=== PATIENT | male | born 1960 | race Caucasian/White ===

== ENCOUNTER 2017-03-26 10:43 | Day surgery (SDC) | payer MEDICARE, OTHER ==
[~2017-03-26] VITALS: Ht 167.6 cm; Wt 95.4 kg
[2017-03-26] VITALS (8 sets, daily range): BP systolic 180–215; BP diastolic 77–95; PULSE 76–88
[~2017-03-26 10:43] MED LIST: ALLOPURINOL300 MG PO; AMLODIPINE5 MG PO; ASPIRIN E.C. 8181 MG PO; BYSTOLIC10 MG PO; BYSTOLIC5 MG PO; CALCIUM ANTACI750 M1 PO; COLACE 100100 MG/CAP PO; CRANBERRY500 M3 PO; FLUOXETINE; FORTAMET1000 MG PO; GLIPIZIDE5 MG PO; GLUCOPHAGE PO; GLUCOTROL 5M5 MG/TAB PO; HYTRIN 5MG C5 MG/CAP PO; LEVEMIR100 U/ML SC; LISINOPRIL20 MG PO; LOPID 600M600 MG/TAB PO; MEVACOR 20M20 MG/TAB PO; NEPHROCAP PO; NORVASC 10MG10 MG PO; ONGLYZA2.5 MG PO; SIMVASTATIN20 MG PO; SODIUM BICARBO650 MG PO; ULTRAM 50MG TAB50 MG PO; ULTRAM50 MG PO; ZESTRIL 20MG TA20 MG PO; ZESTRIL40 MG PO; ZYLOPRIM 300MG300 MG PO
[2017-03-26 11:34] LABS: MEAN CELL VOLUME 99 fl (80.0-100.0); MEAN CORPUSCULAR HGB CONC 34 g/dl (33.0-37.0); MEAN PLATELET VOLUME 12.3 fl (7.4-10.4); PLATELET COUNT 95 K/mm3 (130-400); RED BLOOD COUNT 2.88 M/mm3 (4.20-5.60); REDCELL DISTRIBUTION WIDTH-CV 11.9 % (11.5-14.5)
[2017-03-26 11:35] LABS: HEMATOCRIT 28.6 % (42.0-52.0); HEMOGLOBIN 9.8 g/dl (13.5-18.0); MEAN CORPUSCULAR HEMOGLOBIN 34 pg (27.0-31.0)
[2017-03-26] MEDS ORDERED: PLAVIX 75MG TAB75 MG PO (11:37)
[2017-03-26] MEDS ORDERED: APRESOLINE 25MG25 MG PO (11:39)
[2017-03-26] MEDS ORDERED: COREG 25MG25 MG/TAB PO (11:40)
[2017-03-26 11:41] LABS: INR 1.1 (0.8-3.0); PROTHROMBIN TIME 12.2 SECONDS (9.7-12.8)
[2017-03-26 11:42] LABS: CALCIUM 8.7 mg/dL (8.4-10.2); POTASSIUM 4.5 mmol/L (3.4-5.0)
[2017-03-26] MEDS ORDERED: B-121000 MCG PO (11:42)
[2017-03-26 11:50] LABS: CREATININE, serum 9.16 mg/dL (0.66-1.25)
[2017-03-26 13:21] LABS: CHOLESTEROL RISK RATIO 3.8
[2017-03-27] MEDS ORDERED: RENVELA800 MG PO (00:20)
== END 2017-03-26 17:24 | disposition home or self-care (01) ==
LOC: COL.CAR 10:43
PROVIDERS: Internal Medicine Interventional Cardiology
DX: I25.10 Atherosclerotic heart disease of native coronary artery without angina pectoris (principal); R94.39 Abnormal result of other cardiovascular function study; I48.0 Paroxysmal atrial fibrillation; I12.0 Hypertensive chronic kidney disease with stage 5 chronic kidney disease or end stage renal disease; N18.6 End stage renal disease; Z99.2 Dependence on renal dialysis; Z79.82 Long term (current) use of aspirin; Z79.84 Long term (current) use of oral hypoglycemic drugs; Z87.891 Personal history of nicotine dependence; Z83.3 Family history of diabetes mellitus
CPT/HCPCS: J0360; J2250; J3010; Q9967

== ENCOUNTER 2017-03-26 21:45 | Inpatient (IN) | payer MEDICARE, OTHER ==
[~2017-03-26] VITALS: Ht 167.6 cm; Wt 97.4 kg
[~2017-03-26 21:45] MED LIST changes: +APRESOLINE 25MG25 MG PO; +B-121000 MCG PO; +COREG 25MG25 MG/TAB PO; +PLAVIX 75MG TAB75 MG PO
[2017-03-26 22:37] LABS: BASO # 0.1 (0.0-0.2); BASO % 1.1 % (0.0-2.0); EOS # 0.2 (0.0-0.7); EOS % 3.8 % (0-4.0); GRAN # 3.8 (1.4-6.5); GRAN % 61.1 % (42.2-75.2); LYMPH # 1.5 (1.2-3.4); LYMPH % 24.6 % (20.0-51.0); MEAN CELL VOLUME 99 fl (80.0-100.0); MEAN CORPUSCULAR HGB CONC 34 g/dl (33.0-37.0); MEAN PLATELET VOLUME 11.7 fl (7.4-10.4); MONO # 0.6 (0.1-0.6); MONO % 8.8 % (1.7-9.3); PLATELET COUNT 118 K/mm3 (130-400); RED BLOOD COUNT 2.66 M/mm3 (4.20-5.60); REDCELL DISTRIBUTION WIDTH-CV 12.1 % (11.5-14.5)
[2017-03-26 22:42] LABS: HEMATOCRIT 26.3 % (42.0-52.0); HEMOGLOBIN 8.9 g/dl (13.5-18.0); MEAN CORPUSCULAR HEMOGLOBIN 33 pg (27.0-31.0)
[2017-03-26 22:45] LABS: INR 1.1 (0.8-3.0); PROTHROMBIN TIME 12.4 SECONDS (9.7-12.8)
[2017-03-26 22:47] LABS: PARTIAL THROMBOPLASTIN TIME 20.2 SECONDS (26.0-37.0)
[2017-03-26 22:48] LABS: ALBUMIN 3.5 gm/dL (3.5-5.0); BILIRUBIN,TOTAL 0.2 mg/dL (0.0-1.0); CALCIUM 8.6 mg/dL (8.4-10.2); POTASSIUM 4.3 mmol/L (3.4-5.0); TOTAL PROTEIN 6.3 gm/dL (6.4-8.2)
[2017-03-26 22:55] LABS: CREATININE, serum 10.16 mg/dL (0.66-1.25)
[2017-03-27] VITALS (13 sets, daily range): BP systolic 125–165; BP diastolic 63–77; PULSE 76–82; TEMP 98–98.7
[2017-03-27] MEDS ORDERED: RENVELA800 MG PO (00:20)
[2017-03-27 07:00] LABS: BASO # 0.1 (0.0-0.2); BASO % 0.6 % (0.0-2.0); EOS # 0.1 (0.0-0.7); EOS % 1.3 % (0-4.0); GRAN # 5.9 (1.4-6.5); GRAN % 72.2 % (42.2-75.2); LYMPH # 1.5 (1.2-3.4); LYMPH % 18.2 % (20.0-51.0); MEAN CELL VOLUME 99 fl (80.0-100.0); MEAN CORPUSCULAR HGB CONC 34 g/dl (33.0-37.0); MEAN PLATELET VOLUME 12.5 fl (7.4-10.4); MONO # 0.6 (0.1-0.6); MONO % 7.5 % (1.7-9.3); PLATELET COUNT 98 K/mm3 (130-400); RED BLOOD COUNT 2.34 M/mm3 (4.20-5.60)
[2017-03-27 07:01] LABS: HEMATOCRIT 23.2 % (42.0-52.0); HEMOGLOBIN 7.8 g/dl (13.5-18.0); MEAN CORPUSCULAR HEMOGLOBIN 33 pg (27.0-31.0)
[2017-03-27 07:17] LABS: CALCIUM 8.6 mg/dL (8.4-10.2); PHOSPHOROUS 5.7 mg/dL (2.5-4.5); POTASSIUM 4.5 mmol/L (3.4-5.0)
[2017-03-27 07:24] LABS: CREATININE, serum 10.79 mg/dL (0.66-1.25)
[2017-03-28 00:33] VITALS: BP 167/68; PULSE 86; TEMP 97.8
[2017-03-28 04:26] VITALS: BP 154/67; PULSE 82; TEMP 97.6
[2017-03-28 07:59] VITALS: BP 154/65; PULSE 83; TEMP 98.7
[2017-03-28] MEDS ORDERED: APRESOLINE50 MG PO (13:36)
== END 2017-03-28 14:35 | disposition home or self-care (01) | DRG 919 ==
LOC: COL.ER 21:45 → MEDICAL 23:07 → EDBEDREQ 23:43 → MEDICAL 03-27 01:00
PROVIDERS: Emergency Medicine; Internal Medicine Nephrology
PROC: 5A1D70Z Performance of Urinary Filtration, Intermittent, Less than 6 Hours Per Day (ICD-10-PCS; principal; 2017-03-27)
DX: I97.630 Postprocedural hematoma of a circulatory system organ or structure following a cardiac catheterization (principal); N18.6 End stage renal disease; D62 Acute posthemorrhagic anemia; I12.0 Hypertensive chronic kidney disease with stage 5 chronic kidney disease or end stage renal disease; Z99.2 Dependence on renal dialysis; E11.21 Type 2 diabetes mellitus with diabetic nephropathy; E11.42 Type 2 diabetes mellitus with diabetic polyneuropathy; I25.10 Atherosclerotic heart disease of native coronary artery without angina pectoris; Z87.891 Personal history of nicotine dependence; D63.1 Anemia in chronic kidney disease
CPT/HCPCS: J0360; J2250; J2916; J3010; P9016; Q9967

== ENCOUNTER 2017-04-01 04:40 | Inpatient (IN) | payer MEDICARE, OTHER ==
[2017-04-01] VITALS (11 sets, daily range): BP systolic 148–180; BP diastolic 61–82; PULSE 72–93; TEMP 97.4–98.4
[~2017-04-01] VITALS: Ht 167.6 cm; Wt 97.1 kg
[~2017-04-01 04:40] MED LIST changes: +APRESOLINE50 MG PO; +RENVELA800 MG PO
[2017-04-01 05:46] LABS: BASO % 0.5 % (0.0-2.0); EOS # 0.2 (0.0-0.7); EOS % 3.5 % (0-4.0); GRAN # 4.1 (1.4-6.5); GRAN % 63.9 % (42.2-75.2); LYMPH # 1.3 (1.2-3.4); LYMPH % 19.7 % (20.0-51.0); MEAN CELL VOLUME 99 fl (80.0-100.0); MEAN CORPUSCULAR HGB CONC 34 g/dl (33.0-37.0); MEAN PLATELET VOLUME 11.8 fl (7.4-10.4); MONO # 0.8 (0.1-0.6); MONO % 12.1 % (1.7-9.3); PLATELET COUNT 93 K/mm3 (130-400); RED BLOOD COUNT 2.57 M/mm3 (4.20-5.60)
[2017-04-01 05:50] LABS: HEMATOCRIT 25.5 % (42.0-52.0); HEMOGLOBIN 8.6 g/dl (13.5-18.0); MEAN CORPUSCULAR HEMOGLOBIN 33 pg (27.0-31.0)
[2017-04-01 05:55] LABS: INR 1.1 (0.8-3.0); PROTHROMBIN TIME 12.3 SECONDS (9.7-12.8)
[2017-04-01 05:56] LABS: ALBUMIN 4.1 gm/dL (3.5-5.0); BILIRUBIN,TOTAL 0.7 mg/dL (0.0-1.0); CALCIUM 8.9 mg/dL (8.4-10.2)
[2017-04-01 05:58] LABS: PARTIAL THROMBOPLASTIN TIME 28.1 SECONDS (26.0-37.0)
[2017-04-01 05:59] LABS: CREATININE, serum 5.87 mg/dL (0.66-1.25)
[2017-04-01 17:25] LABS: HEMOGLOBIN 10.1 g/dl (13.5-18.0)
[2017-04-02] VITALS (7 sets, daily range): BP systolic 139–169; BP diastolic 66–76; PULSE 77–92; TEMP 97.8–98.2
[2017-04-02 07:19] LABS: BASO % 0.7 % (0.0-2.0); EOS # 0.2 (0.0-0.7); EOS % 2.8 % (0-4.0); GRAN % 66.6 % (42.2-75.2); LYMPH % 16.7 % (20.0-51.0); MEAN CELL VOLUME 98 fl (80.0-100.0); MEAN CORPUSCULAR HGB CONC 33 g/dl (33.0-37.0); MEAN PLATELET VOLUME 12.1 fl (7.4-10.4); MONO # 0.8 (0.1-0.6); MONO % 12.7 % (1.7-9.3); PLATELET COUNT 87 K/mm3 (130-400); RED BLOOD COUNT 3.09 M/mm3 (4.20-5.60); REDCELL DISTRIBUTION WIDTH-CV 14.7 % (11.5-14.5)
[2017-04-02 07:22] LABS: HEMATOCRIT 30.4 % (42.0-52.0); HEMOGLOBIN 10.1 g/dl (13.5-18.0); MEAN CORPUSCULAR HEMOGLOBIN 33 pg (27.0-31.0)
[2017-04-02 07:41] LABS: ALBUMIN 3.6 gm/dL (3.5-5.0); CALCIUM 8.7 mg/dL (8.4-10.2); PHOSPHOROUS 4.8 mg/dL (2.5-4.5); POTASSIUM 4.9 mmol/L (3.4-5.0)
[2017-04-02 08:02] LABS: CREATININE, serum 6.51 mg/dL (0.66-1.25)
[2017-04-03 03:19] VITALS: BP 152/74; PULSE 85
[2017-04-03 06:39] LABS: BASO % 0.4 % (0.0-2.0); EOS # 0.2 (0.0-0.7); EOS % 2.4 % (0-4.0); GRAN # 4.8 (1.4-6.5); GRAN % 68.1 % (42.2-75.2); LYMPH # 1.3 (1.2-3.4); MEAN CELL VOLUME 98 fl (80.0-100.0); MEAN CORPUSCULAR HGB CONC 34 g/dl (33.0-37.0); MONO # 0.8 (0.1-0.6); MONO % 10.8 % (1.7-9.3); PLATELET COUNT 85 K/mm3 (130-400); RED BLOOD COUNT 2.79 M/mm3 (4.20-5.60); REDCELL DISTRIBUTION WIDTH-CV 13.8 % (11.5-14.5)
[2017-04-03 06:43] LABS: HEMATOCRIT 27.4 % (42.0-52.0); HEMOGLOBIN 9.2 g/dl (13.5-18.0); MEAN CORPUSCULAR HEMOGLOBIN 33 pg (27.0-31.0)
[2017-04-03 06:52] LABS: ALBUMIN 3.5 gm/dL (3.5-5.0); CALCIUM 8.7 mg/dL (8.4-10.2); PHOSPHOROUS 5.7 mg/dL (2.5-4.5); POTASSIUM 4.8 mmol/L (3.4-5.0)
[2017-04-03 06:58] LABS: CREATININE, serum 8.81 mg/dL (0.66-1.25)
[2017-04-03 10:44] VITALS: BP 162/87; PULSE 84; TEMP 98.2
[2017-04-03 17:06] VITALS: BP 163/72; PULSE 82; TEMP 98.1
[2017-04-03 21:31] VITALS: BP 159/73; PULSE 85; TEMP 98.4
[2017-04-04 02:17] VITALS: BP 151/68; PULSE 74; TEMP 98.8
[2017-04-04 06:44] LABS: BASO % 0.5 % (0.0-2.0); EOS # 0.2 (0.0-0.7); EOS % 2.3 % (0-4.0); GRAN # 4.7 (1.4-6.5); GRAN % 63.8 % (42.2-75.2); LYMPH # 1.7 (1.2-3.4); MEAN CELL VOLUME 97 fl (80.0-100.0); MEAN CORPUSCULAR HGB CONC 34 g/dl (33.0-37.0); MEAN PLATELET VOLUME 11.9 fl (7.4-10.4); MONO # 0.7 (0.1-0.6); MONO % 10.1 % (1.7-9.3); PLATELET COUNT 91 K/mm3 (130-400); RED BLOOD COUNT 2.86 M/mm3 (4.20-5.60); REDCELL DISTRIBUTION WIDTH-CV 13.4 % (11.5-14.5)
[2017-04-04 06:50] LABS: ALBUMIN 3.4 gm/dL (3.5-5.0); CALCIUM 8.7 mg/dL (8.4-10.2); PHOSPHOROUS 5.7 mg/dL (2.5-4.5); POTASSIUM 5.1 mmol/L (3.4-5.0)
[2017-04-04 06:54] LABS: CREATININE, serum 7.67 mg/dL (0.66-1.25)
[2017-04-04 06:55] LABS: HEMATOCRIT 27.8 % (42.0-52.0); HEMOGLOBIN 9.4 g/dl (13.5-18.0); MEAN CORPUSCULAR HEMOGLOBIN 33 pg (27.0-31.0)
[2017-04-04 07:57] VITALS: BP 152/66; PULSE 79; TEMP 98.2
[2017-04-04] MEDS ORDERED: MIRALAX PA17 GM/Dose PO (10:44)
[2017-04-04] MEDS ORDERED: OXY IR5 MG PO (10:44)
[2017-04-04] MEDS ORDERED: APRESOLINE50 MG PO (10:46)
== END 2017-04-04 13:13 | disposition home or self-care (01) | DRG 919 ==
LOC: COL.ER 04:40 → MEDICAL 08:27
PROVIDERS: Emergency Medicine; Internal Medicine Nephrology
PROC: B41D1ZZ Fluoroscopy of Aorta and Bilateral Lower Extremity Arteries using Low Osmolar Contrast (ICD-10-PCS; principal; 2017-04-01)
PROC: 5A1D70Z Performance of Urinary Filtration, Intermittent, Less than 6 Hours Per Day (ICD-10-PCS; 2017-04-01)
PROC: 5A1D70Z Performance of Urinary Filtration, Intermittent, Less than 6 Hours Per Day (ICD-10-PCS; 2017-04-03)
DX: I97.638 Postprocedural hematoma of a circulatory system organ or structure following other circulatory system procedure (principal); N18.6 End stage renal disease; I12.0 Hypertensive chronic kidney disease with stage 5 chronic kidney disease or end stage renal disease; D62 Acute posthemorrhagic anemia; I25.10 Atherosclerotic heart disease of native coronary artery without angina pectoris; E11.22 Type 2 diabetes mellitus with diabetic chronic kidney disease; Z99.2 Dependence on renal dialysis; E11.42 Type 2 diabetes mellitus with diabetic polyneuropathy; E83.39 Other disorders of phosphorus metabolism; D63.1 Anemia in chronic kidney disease; Z87.891 Personal history of nicotine dependence
CPT/HCPCS: C1760; C1769; C1887; C1894; J1170; J2250; J2405; J3010; P9016; Q9967

== ENCOUNTER → 2017-05-22 | Outpatient (CLI) | payer MEDICARE, OTHER ==
[~2017-05-22] MED LIST changes: +MIRALAX PA17 GM/Dose PO; +OXY IR5 MG PO
== END ==
LOC: COL.LAB 12:46
DX: Z01.89 Encounter for other specified special examinations (principal)

== ENCOUNTER → 2017-06-20 | Outpatient (CLI) | payer MEDICARE, OTHER | LOC: COL.VAS 10:19 | DX: Z01.810 Encounter for preprocedural cardiovascular examination (principal); E11.22 Type 2 diabetes mellitus with diabetic chronic kidney disease; I12.9 Hypertensive chronic kidney disease with stage 1 through stage 4 chronic kidney disease, or unspecified chronic kidney disease; N18.6 End stage renal disease; I27.20 Pulmonary hypertension, unspecified; E66.9 Obesity, unspecified; Z68.39 Body mass index [BMI] 39.0-39.9, adult; Z99.2 Dependence on renal dialysis ==

== ENCOUNTER 2017-07-13 09:35 | Outpatient (RCR) | payer MEDICARE, OTHER ==
[~2017-07-13] VITALS: Ht 167.6 cm; Wt 97.9 kg
[2017-07-13 11:04] VITALS: BP 114/51; PULSE 66; TEMP 98.9
[2017-07-13 11:17] VITALS: BP 103/45; PULSE 67; TEMP 98.5
[2017-07-13 11:32] VITALS: BP 116/46; PULSE 65; TEMP 98.1
[2017-07-13 12:02] VITALS: BP 125/48; PULSE 66; TEMP 98.5
[2017-07-13 13:02] VITALS: BP 111/52; PULSE 66; TEMP 97.2
== END 2017-07-13 13:30 | disposition home or self-care (01) ==
LOC: EUO 09:35
DX: D50.0 Iron deficiency anemia secondary to blood loss (chronic) (principal)
CPT/HCPCS: J7050; P9016

== ENCOUNTER 2017-10-12 12:56 | Outpatient (RCR) | payer MEDICARE, OTHER | END 2017-10-14 | disposition home or self-care (01) | LOC: COL.CR | DX: Z48.812 Encounter for surgical aftercare following surgery on the circulatory system (principal); Z95.1 Presence of aortocoronary bypass graft; I25.10 Atherosclerotic heart disease of native coronary artery without angina pectoris ==

== ENCOUNTER 2017-12-15 23:55 | Emergency (ER) | payer MEDICARE, OTHER ==
[~2017-12-15] VITALS: Ht 167.6 cm; Wt 96.5 kg
[~2017-12-15 23:55] MED LIST changes: +CRESTOR 10MG10 MG PO
[2017-12-16] VITALS: TEMP 98.3
[2017-12-16 00:17] LABS: BASO % 0.7 % (0.0-2.0); EOS # 0.1 (0.0-0.7); EOS % 2.2 % (0-4.0); GRAN # 3.5 (1.4-6.5); GRAN % 60.4 % (42.2-75.2); HEMOGLOBIN 10.9 g/dl (13.5-18.0); LYMPH # 1.5 (1.2-3.4); LYMPH % 25.9 % (20.0-51.0); MEAN CELL VOLUME 102 fl (80.0-100.0); MEAN CORPUSCULAR HEMOGLOBIN 35 pg (27.0-31.0); MEAN CORPUSCULAR HGB CONC 34 g/dl (33.0-37.0); MEAN PLATELET VOLUME 11.1 fl (7.4-10.4); MONO # 0.6 (0.1-0.6); MONO % 10.3 % (1.7-9.3); PLATELET COUNT 113 K/mm3 (130-400); RED BLOOD COUNT 3.14 M/mm3 (4.20-5.60); REDCELL DISTRIBUTION WIDTH-CV 13.2 % (11.5-14.5)
[2017-12-16 00:24] LABS: HEMATOCRIT 32.1 % (42.0-52.0)
[2017-12-16 00:34] LABS: ALANINE AMINOTRANSFERASE 46 U/L (21-72); ALBUMIN 4.4 gm/dL (3.5-5.0); ALKALINE PHOSPHATASE 82 U/L (50-136); ANION GAP 10 mmol/L (7-16); AST,SGOT 35 U/L (15-37); BILIRUBIN,TOTAL 0.5 mg/dL (0.0-1.0); BLOOD UREA NITROGEN 29 mg/dL (9-20); CARBON DIOXIDE 31 mmol/L (22-30); CHLORIDE 98 mmol/L (98-107); GLUCOSE 145 mg/dL (74-106); POTASSIUM 4.3 mmol/L (3.4-5.0); SODIUM 140 mmol/L (137-145); TOTAL PROTEIN 7.8 gm/dL (6.4-8.2)
[2017-12-16 00:38] LABS: CREATININE, serum 7.55 mg/dL (0.66-1.25)
[2017-12-16 00:47] LABS: TROPONIN-I < 0.012 ng/mL (0.000-0.034)
[2017-12-16 04:29] VITALS: BP 156/72; PULSE 78
== END 2017-12-16 04:36 | disposition home or self-care (01) ==
LOC: COL.ER 23:55
PROVIDERS: Emergency Medicine
DX: R55 Syncope and collapse (principal); R42 Dizziness and giddiness; E11.22 Type 2 diabetes mellitus with diabetic chronic kidney disease; I25.10 Atherosclerotic heart disease of native coronary artery without angina pectoris; I12.0 Hypertensive chronic kidney disease with stage 5 chronic kidney disease or end stage renal disease; N18.6 End stage renal disease; Z99.2 Dependence on renal dialysis; Z95.1 Presence of aortocoronary bypass graft; Z79.82 Long term (current) use of aspirin; Z79.02 Long term (current) use of antithrombotics/antiplatelets; Z79.84 Long term (current) use of oral hypoglycemic drugs

== ENCOUNTER 2018-02-01 00:41 | Emergency (ER) | payer MEDICARE, OTHER ==
[~2018-02-01] VITALS: Ht 167.6 cm; Wt 95.4 kg
[2018-02-01 00:46] VITALS: TEMP 98.7
[2018-02-01 01:06] LABS: COLLECTION METHOD CLEAN CATCH
[2018-02-01 01:16] LABS: BASO % 0.6 % (0.0-2.0); EOS # 0.2 (0.0-0.7); EOS % 2.8 % (0-4.0); GRAN % 70.7 % (42.2-75.2); HEMOGLOBIN 11.8 g/dl (13.5-18.0); LYMPH # 1.1 (1.2-3.4); LYMPH % 15.8 % (20.0-51.0); MEAN CELL VOLUME 103 fl (80.0-100.0); MEAN CORPUSCULAR HEMOGLOBIN 35 pg (27.0-31.0); MEAN CORPUSCULAR HGB CONC 34 g/dl (33.0-37.0); MEAN PLATELET VOLUME 10.9 fl (7.4-10.4); MONO # 0.7 (0.1-0.6); MONO % 9.8 % (1.7-9.3); PLATELET COUNT 109 K/mm3 (130-400); RED BLOOD COUNT 3.33 M/mm3 (4.20-5.60); REDCELL DISTRIBUTION WIDTH-CV 12.5 % (11.5-14.5)
[2018-02-01 01:17] LABS: HEMATOCRIT 34.3 % (42.0-52.0)
[2018-02-01 01:19] LABS: PH 5 (5-8); SQUAMOUS EPITHELIAL None Seen /hpf; URINE APPEARANCE Cloudy; URINE BACTERIA None Seen /hpf; URINE BILIRUBIN Negative (NEGATIVE); URINE BLOOD 2+ (NEGATIVE); URINE COLOR Red; URINE GLUCOSE 1+ (NEGATIVE); URINE KETONE Negative (NEGATIVE); URINE LEUKOCYTE ESTERASE Negative (NEGATIVE); URINE NITRATE Negative (NEGATIVE); URINE PROTEIN(semi-quant) 2+ (NEGATIVE); URINE RBC >50 /hpf; URINE UROBILINOGEN Negative (NEGATIVE)
[2018-02-01 01:25] LABS: CALCIUM 9.8 mg/dL (8.4-10.2)
[2018-02-01 01:30] LABS: CREATININE, serum 7.18 mg/dL (0.66-1.25)
[2018-02-01] MEDS ORDERED: LEVAQUIN 5500 MG/TA1 PO (02:54)
[2018-02-01 03:21] VITALS: BP 135/72; PULSE 80
== END 2018-02-01 03:23 | disposition home or self-care (01) ==
LOC: COL.ER 00:41
PROVIDERS: Emergency Medicine
DX: N13.30 Unspecified hydronephrosis (principal); N30.00 Acute cystitis without hematuria; I10 Essential (primary) hypertension; E11.9 Type 2 diabetes mellitus without complications; E78.5 Hyperlipidemia, unspecified; Z95.1 Presence of aortocoronary bypass graft; Z79.82 Long term (current) use of aspirin; Z79.84 Long term (current) use of oral hypoglycemic drugs; Z79.02 Long term (current) use of antithrombotics/antiplatelets
CPT/HCPCS: J0696

== ENCOUNTER 2018-06-04 08:14 | Emergency (ER) | payer MEDICARE, OTHER ==
[~2018-06-04] VITALS: Ht 167.6 cm; Wt 95.5 kg
[~2018-06-04 08:14] MED LIST changes: +LEVAQUIN 5500 MG/TA1 PO
[2018-06-04 08:23] VITALS: BP 203/95
[2018-06-04] MEDS ORDERED: ULTRAM 50MG TAB50 MG PO (08:31)
[2018-06-04] MEDS ORDERED: ZYLOPRIM 100MG100 MG PO (08:32)
[2018-06-04] MEDS ORDERED: ZOLOFT 25MG25 MG PO (08:32)
[2018-06-04] MEDS ORDERED: HYTRIN 5MG C5 MG/CAP PO (08:33)
[2018-06-04] MEDS ORDERED: OMNICEF 300MG300 MG PO (09:13)
[2018-06-04 09:36] VITALS: PULSE 74; TEMP 98.2
== END 2018-06-04 09:36 | disposition home or self-care (01) ==
LOC: COL.ER 08:14
DX: K04.7 Periapical abscess without sinus (principal); I12.0 Hypertensive chronic kidney disease with stage 5 chronic kidney disease or end stage renal disease; N18.6 End stage renal disease; G62.9 Polyneuropathy, unspecified; I51.9 Heart disease, unspecified; Z99.2 Dependence on renal dialysis; Z87.891 Personal history of nicotine dependence
CPT/HCPCS: J0696

== ENCOUNTER → 2019-03-19 | Outpatient (CLI) | payer MEDICARE, OTHER ==
[~2019-03-19] MED LIST changes: +NORVASC 5MG5 MG/TAB PO; +OMNICEF 300MG300 MG PO; +ZOLOFT 25MG25 MG PO; +ZYLOPRIM 100MG100 MG PO
== END ==
LOC: COL.LAB 08:16 → COL.RAD 08:16
DX: I51.7 Cardiomegaly (principal); R09.89 Other specified symptoms and signs involving the circulatory and respiratory systems

== ENCOUNTER → 2019-06-17 | Outpatient (CLI) | payer MEDICARE, OTHER | LOC: ZCOL.LAB 17:37 | DX: Z11.59 Encounter for screening for other viral diseases (principal); N18.6 End stage renal disease ==

== ENCOUNTER 2020-02-18 12:36 | Outpatient (CLI) | payer MEDICARE, OTHER ==
[~2020-02-18] VITALS: Ht 167.6 cm; Wt 93.7 kg
[~2020-02-18 12:36] MED LIST changes: -NORVASC 5MG5 MG/TAB PO
[2020-02-18] MEDS ORDERED: VELPHORO PO (12:50)
[2020-02-18 15:25] VITALS: BP 187/82; PULSE 70
--- NOTE | 2020-02-18 15:28 | NUR ---
SEE MERGE DOCUMENTATION FOR MEDICATION ADMINISTRATION AND INTRA/POST PROCEDURE SEDATION ASSESSMENTS.
[2020-02-18 16:47] VITALS: BP 161/83; PULSE 71
[2020-02-18 17:05] VITALS: BP 169/82; PULSE 63
[2020-02-18 17:20] VITALS: BP 168/76; PULSE 74
--- NOTE | 2020-02-18 17:37 | NUR ---
Discharge instructions given to pt.Pt verbalizes understanding.INT removed,catheter tip intact.
[2020-02-18 17:47] VITALS: BP 167/74; PULSE 73
--- NOTE | 2020-02-18 17:47 | NUR ---
pT ESCORTED OUT BY THIS NURSE SO HE MAY GO TO DIALYSIS
== END 2020-02-18 17:48 | disposition home or self-care (01) ==
LOC: COL.CAR 12:36
DX: T82.898A Other specified complication of vascular prosthetic devices, implants and grafts, initial encounter (principal); I12.0 Hypertensive chronic kidney disease with stage 5 chronic kidney disease or end stage renal disease; N18.6 End stage renal disease; Z99.2 Dependence on renal dialysis; Z87.891 Personal history of nicotine dependence; Z79.82 Long term (current) use of aspirin
CPT/HCPCS: J1644; J2250; J3010; Q9967

== ENCOUNTER 2020-05-16 11:14 | Emergency (ER) | payer MEDICARE, OTHER ==
[~2020-05-16] VITALS: Ht 167.6 cm; Wt 92.0 kg
[~2020-05-16 11:14] MED LIST changes: +VELPHORO PO
[2020-05-16 11:20] VITALS: TEMP 97.7
[2020-05-16] MEDS ORDERED: PERCOCET 325 MG1 TA2 PO (11:51)
[2020-05-16] MEDS ORDERED: CLEOCIN HC150 MG/CAP PO (11:51)
[2020-05-16 12:01] VITALS: BP 148/80; PULSE 90
== END 2020-05-16 12:02 | disposition home or self-care (01) ==
LOC: COL.ER 11:14
DX: K04.7 Periapical abscess without sinus (principal); I12.0 Hypertensive chronic kidney disease with stage 5 chronic kidney disease or end stage renal disease; N18.6 End stage renal disease; M10.9 Gout, unspecified; Z99.2 Dependence on renal dialysis; Z79.82 Long term (current) use of aspirin

== ENCOUNTER 2021-09-19 20:12 | Emergency (ER) | payer MEDICARE ==
[~2021-09-19] VITALS: Ht 167.6 cm; Wt 90.0 kg
[~2021-09-19 20:12] MED LIST changes: +CLEOCIN HC150 MG/CAP PO; +PERCOCET 325 MG1 TA2 PO
[2021-09-19 20:18] VITALS: TEMP 97.4
[2021-09-19 20:36] LABS: BASO # 0.1 K/mm3 (0.0-0.2); BASO % 0.5 % (0.0-2.0); EOS % 0.4 % (0.0-4.0); GRAN # 7.6 K/mm3 (1.4-6.5); GRAN % 83.2 % (42.2-75.2); HEMATOCRIT 36.4 % (42.0-52.0); HEMOGLOBIN 12.9 g/dl (13.5-18.0); LYMPH % 10.9 % (20.0-51.0); MEAN CELL VOLUME 100 fl (80.0-100.0); MEAN CORPUSCULAR HEMOGLOBIN 35 pg (27-31); MEAN CORPUSCULAR HGB CONC 35 g/dl (33.0-37.0); MEAN PLATELET VOLUME 11.1 fl (7.4-10.4); MONO # 0.4 K/mm3 (0.1-0.6); MONO % 4.7 % (1.7-9.3); PLATELET COUNT 122 K/mm3 (130-400); RED BLOOD COUNT 3.65 M/mm3 (4.20-5.60)
[2021-09-19] MEDS ORDERED: ZYLOPRIM 300MG300 MG PO (20:43)
[2021-09-19 20:46] LABS: PROTHROMBIN TIME 11.5 SECONDS (9.7-12.8)
[2021-09-19 20:49] LABS: PARTIAL THROMBOPLASTIN TIME 35.8 SECONDS (26.0-37.0)
[2021-09-19 20:55] LABS: ALBUMIN 4.5 gm/dL (3.4-4.8); BILIRUBIN,TOTAL 0.7 mg/dL (0.2-1.2); C-REACTIVE PROTEIN 0.05 mg/dL (0.00-0.50); CALCIUM 9.9 mg/dL (8.4-10.2); CREATININE, serum 11.99 mg/dL (0.72-1.25); POTASSIUM 4.7 mmol/L (3.5-4.5); TOTAL PROTEIN 7.9 gm/dL (6.2-8.1)
[2021-09-19 21:01] LABS: TROPONIN-I 0.016 ng/mL (0.00-0.033)
[2021-09-19] MEDS ORDERED: CATAPRES0.2 MG PO (22:26)
[2021-09-19] MEDS ORDERED: LOTENSIN40 MG PO (22:26)
[2021-09-19] MEDS ORDERED: PHENERGAN 25 TA25 MG PO (22:51)
[2021-09-19] MEDS ORDERED: ANTIVERT 25MG25 MG PO (22:51)
[2021-09-19 23:45] VITALS: BP 169/87; PULSE 99
== END 2021-09-19 23:45 | disposition home or self-care (01) ==
LOC: COL.ER 20:12
PROVIDERS: Emergency Medicine
DX: I12.0 Hypertensive chronic kidney disease with stage 5 chronic kidney disease or end stage renal disease (principal); N18.6 End stage renal disease; Z99.2 Dependence on renal dialysis
CPT/HCPCS: J0360; J2405; J2550

== ENCOUNTER 2023-09-01 01:02 | Emergency (ER) | payer MEDICARE, BC ==
[~2023-09-01] VITALS: Ht 167.6 cm; Wt 92.6 kg
[~2023-09-01 01:02] MED LIST changes: +AMOXICILLIN 50500 MG PO; +ANTIVERT 25MG25 MG PO; +CATAPRES0.2 MG PO; +LOTENSIN40 MG PO; +NORCO 325 MG-51 TAB PO; +NS 250 ML IV ONE; +PHENERGAN 25 TA25 MG PO
[2023-09-01 01:03] VITALS: TEMP 97.6
[2023-09-01 01:49] LABS: BASO % 0.4 % (0.0-2.0); EOS # 0.1 K/mm3 (0.0-0.7); EOS % 0.8 % (0.0-4.0); GRAN # 8.2 K/mm3 (1.4-6.5); GRAN % 78.9 % (42.2-75.2); HEMATOCRIT 34.2 % (42.0-52.0); HEMOGLOBIN 11.8 g/dl (13.5-18.0); LYMPH # 1.1 K/mm3 (1.2-3.4); LYMPH % 10.8 % (20.0-51.0); MEAN CELL VOLUME 102 fl (80.0-100.0); MEAN CORPUSCULAR HEMOGLOBIN 35 pg (27-31); MEAN CORPUSCULAR HGB CONC 35 g/dl (33.0-37.0); MEAN PLATELET VOLUME 11.6 fl (7.4-10.4); MONO # 0.9 K/mm3 (0.1-0.6); MONO % 8.5 % (1.7-9.3); PLATELET COUNT 155 K/mm3 (130-400); RED BLOOD COUNT 3.36 M/mm3 (4.20-5.60); REDCELL DISTRIBUTION WIDTH-CV 13.2 % (11.5-14.5)
[2023-09-01 01:59] LABS: ALBUMIN 4.3 g/dL (3.4-4.8); BILIRUBIN,TOTAL 0.8 mg/dL (0.2-1.2); CALCIUM 10.8 mg/dL (8.4-10.2); CREATININE, serum 6.24 mg/dL (0.72-1.25); MAGNESIUM 2.2 mg/dL (1.6-2.6); PHOSPHOROUS 4.5 mg/dL (2.3-4.7); POTASSIUM 4.9 mEq/L (3.5-4.5)
[2023-09-01 02:23] LABS: TROPONIN-I 0.042 ng/mL (0.00-0.033)
[2023-09-01] MEDS ORDERED: NS 250 ML IV ONE ×2 (03:45→05:15)
[2023-09-01 07:11] VITALS: BP 102/59; PULSE 73
== END 2023-09-01 07:22 | disposition home or self-care (01) ==
LOC: COL.ER 01:02
PROVIDERS: Emergency Medicine
DX: I95.9 Hypotension, unspecified (principal); R19.7 Diarrhea, unspecified; E11.22 Type 2 diabetes mellitus with diabetic chronic kidney disease; I12.0 Hypertensive chronic kidney disease with stage 5 chronic kidney disease or end stage renal disease; N18.6 End stage renal disease; R79.89 Other specified abnormal findings of blood chemistry; Z99.2 Dependence on renal dialysis
CPT/HCPCS: J7050